=== PATIENT | male | born 1950 | race Caucasian/White ===

== ENCOUNTER 2016-06-05 22:15 | Emergency (ER) | payer MEDICAID ==
[2016-06-05 22:29] VITALS: RESP 20; O2SAT 97
--- NOTE | 2016-06-05 23:46 | CT ---
CT Brain (Without Contrast) 2329 hours History: Fall, head injury. Comparison: None. Technique: Axial computed tomographic images of the brain without contrast. Dose reduction techniques were utilized. Findings: Right parietal scalp laceration and soft tissue swelling. No fracture. Ventricles, cistern s, and sulci are widened consistent with atrophy. No hydrocephalus, midline shift/herniation, or epid ural/subdural hematomas. No acute intraparenchymal hemorrhage or mass effect. Cerebrovascular atheros clerosis. old right orbital trauma. Bone windows demonstrate no displaced fractures. Paranasal sinus es and mastoid air cells are clear. Impression: 1. Moderate atrophy. 2. No acute hemorrhage, hydrocephalus, or mass effect. 3. Cerebrovascular atherosclerosis. 4. No definite acute infarct. 5. Small right parietal scalp hematoma 6. No epidural or subdural hematoma. Findings and recommendations discussed with Emergency Department physician, Dr. Rafiq Alegria at 2340 hour, today. Final report concurs with initial preliminary interpretation.
--- NOTE | 2016-06-05 23:54 | EDPHY ---
HPI/HX/ROS/PE/MDM Narrative: Chief complaint: Fall, head injury HPI: 65-year-old male states that he was at 12:00 p.m. hour fitness when he lost his footing on the treadmill falling backwards and striking his head. He denies loss of consciousness. He states that this happened he thinks that about 730 this evening. Denies any neck pain. No nausea or vomiting. Has a small abrasion on his right arm. He states that the staff called EMS who brought him directly to the hospital. No headache. No nausea or vomiting. Denies prior injuries. ROS: 10 point Review of Systems is negative except as noted in the HPI. Physical exam: Gen: Awake, Alert, Airway Intact, patient is very mildly disoriented as he cannot account for the time difference between when he thought he was on the treadmill and when he arrived in the emergency department which has been 4 hours. He states that he may have been a little bit later. HEENT: Head: Right parietal scalp abrasion with hematoma. No laceration. There is significant tenderness but no obvious deformity Eyes: PERRLA, EOMI Nose: No epistaxis Mouth: Normal dentition, Airway patent Face: No deformity Neck: non-tender, no stepoff, Full ROM without pain Chest: non-tender, lungs CTA Heart: normal heart tones Abd: soft, non-tender, atraumatic Pelvis: non-tender, stable to AP and Lateral compression Back: atraumatic, no midline tenderness Ext: Right forearm small abrasion no bony tenderness full range of motion without pain, full ROM Skin: no rash Neuro: CN II-XII intact, Strength 5/5 in all extremities, sensation intact in all extremities ED Course: CT head: No acute intracranial injury per Dr. Landa Clinical course: 65-year-old male with a scalp abrasion and hematoma after falling off a treadmill. I did obtain a CT scan on him as he was a little vague with his history. He felt that the injury happened at 7:30 a.m. this evening and stated EMS brought him directly here however he has only been in the emergency department for [address] scan of his brain is negative. There is some atrophy. He is not currently clinically intoxicated. His wound has been dressed. Will be discharged with follow up with primary care physician with head injury instructions. General Time Seen by Provider: 06/05/16 22:50 Initial Vital Signs: Initial Vital Signs Temperature (C) 36.7 C 06/05/16 22:26 Heart Rate 70 06/05/16 22:26 Respiratory Rate 20 06/05/16 22:26 Blood Pressure 188/106 H 06/05/16 22:26 O2 Sat (%) 97 06/05/16 22:26 O2 Delivery Mode Room Air Allergies/Adverse Reactions: Penicillins Allergy (Unknown, Verified 04/17/16 00:33) Other-Enter Comments Home Medications: Medication Instructions Recorded Pantoprazole Sodium [Protonix 40mg 40 mg PO BID 12/22/15 (*)] Labetalol HCl [Trandate 100 mg (*)] 150 mg PO BID 04/12/16 Lisinopril [Zestril 40 mg (*)] 40 mg PO DAILY 04/12/16 Cyclobenzaprine [Flexeril 10 MG 10 mg PO Q6-8PRN PRN #60 tab 04/22/16 (*)] Ibuprofen [Motrin (*)] 400 mg PO Q6HRS PRN #0 tab 04/22/16 oxyCODONE CR [Oxycontin] 30 mg PO BID #60 tab 04/22/16 oxyCODONE IR [Oxycodone Ir (*)] 15 mg PO Q4HRS PRN #60 tab 04/22/16 oxyCODONE/APAP 5/325 [Percocet 1 - 2 tab PO Q4-6PRN PRN #14 tab 05/17/16 5/325 (RX)] Departure - Departure Disposition: Home, Routine, Self-Care Clinical Impression: Hematoma of scalp, Abrasion of scalp Condition: Good Instructions: Hematoma (ED), Abrasion (ED), Head Injury (ED) Additional Instructions: Follow up with her primary care physician in 2-3 days for re-evaluation. Return to the emergency department for increasing headache, nausea, vomiting, vision changes, ringing in ears, or any other concerns. Referrals: Elizabeth Rodriguez, PAC [Primary Care Provider] - As per Instructions
[2016-06-06 00:20] VITALS: BP 173/102; PULSE 78; TEMP 98.2
== END 2016-06-06 00:21 | disposition home or self-care (01) ==
LOC: EDUNIT#
DX: S00.03XA Contusion of scalp, initial encounter (principal); S00.01XA Abrasion of scalp, initial encounter; W01.198A Fall on same level from slipping, tripping and stumbling with subsequent striking against other object, initial encounter; Y99.8 Other external cause status; Y93.A1 Activity, exercise machines primarily for cardiorespiratory conditioning

== ENCOUNTER 2016-10-26 14:39 | Emergency (ER) | payer MEDICAID ==
[2016-10-26 17:31] VITALS: TEMP 98.2
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
[2016-10-26 18:12] LABS: % IMMATURE GRANULYOCYTES 0.3 % (0.0-1.1); ABSOLUTE IMMATURE GRANULOCYTES 0.01 10^3/uL (0.00-0.10); ADD DIFF? NO; ADD MORPH? NO; ADD SCAN? NO; ATYPICAL LYMPHOCYTE FLAG 20 (0-99); FRAGMENT RBC FLAG 0 (0-99); HEMATOCRIT 31.5 % (40.0-51.0); HEMOGLOBIN 10.9 g/dL (13.7-17.5); LEFT SHIFT FLG 0 (0-99); LIPEMIA HEMOLYSIS FLAG 90 (0-99); MEAN CELL HEMOGLOBIN CONCENTR. 34.6 g/dL (32.4-36.7); MEAN CELL VOLUME 98.1 fL (81.5-99.8); MEAN PLATELET VOLUME 8.9 fL (8.7-11.7); PLATELET CLUMPS FLAG 10 (0-99); PLATELET COUNT 212 10^3/uL (150-400); RED BLOOD CELL COUNT 3.21 10^6/uL (4.40-6.38); RED CELL DISTRIBUTION WIDTH 13.9 % (11.5-15.2)
[2016-10-26 18:35] LABS: ALANINE AMINOTRANSFERASE 86 IU/L (21-72); ALBUMIN 4.4 g/dL (3.5-5.0); ALKALINE PHOSPHATASE 43 IU/L (38-126); ANION GAP 18 mEq/L (8-16); ASPARTATE AMINOTRANSFERASE 173 IU/L (17-59); BILIRUBIN-CONJUGATED 0.8 mg/dL (0.0-0.5); BILIRUBIN-UNCONJUGATED 0.2 mg/dL (0.0-1.1); CALCIUM 8.6 mg/dL (8.5-10.4); CARBON DIOXIDE 19 mEq/l (22-31); CHLORIDE 107 mEq/L (97-110); GLOMERULAR FILTRATION RATE > 60; GLUCOSE 86 mg/dL (70-100); POTASSIUM 3.4 mEq/L (3.5-5.2); SODIUM 144 mEq/L (134-144); TOTAL PROTEIN 7.4 g/dL (6.3-8.2)
--- NOTE | 2016-10-26 18:35 | CPEKG ---
Heart Rate: 60 RR Interval: 1000 P-R Interval: 168 QRSD Interval: 94 QT Interval: 432 QTC Interval: 432 P [place]: 56 QRS [place]: 8 T Wave [place]: 35 EKG Severity - NORMAL ECG - EKG Impression: SINUS RHYTHM Electronically Signed By: Roz Noel 26-Oct-2016 22:44:01
[2016-10-26 18:47] LABS: TROPONIN I < 0.012 ng/mL (0-0.034)
[2016-10-26] MEDS ORDERED: LABETALOL HCL 100 MG TAB PO ONE (20:21)
[2016-10-26 20:57] VITALS: BP 155/99
[2016-10-26] MEDS ORDERED: FUROSEMIDE 20 MG TAB PO ONE (21:07)
[2016-10-26 21:32] VITALS: PULSE 62; RESP 15; O2SAT 95
== END 2016-10-26 21:32 | disposition home or self-care (01) ==
DX: R06.09 Other forms of dyspnea (principal); R60.9 Edema, unspecified; I10 Essential (primary) hypertension